=== PATIENT | male | born 1955 | race Caucasian/White ===

== ENCOUNTER 2021-05-01 06:13 | Day surgery (SDC) | payer BC ==
[2021-04-27 10:19] VITALS: BMI 23.6
[~2021-05-01 06:13] MED LIST: LACTATED RINGERS 1,000 ML IV SCH; LIDOCAINE 1% (10MG/ML) FOR IV START INTRADERMA PRN
[2021-05-01 07:01] VITALS: TEMP 98
[2021-05-01] MEDS ORDERED: PROPOFOL 10 MG/ML 20 ML VIAL IV ONE (07:04)
--- NOTE | 2021-05-01 07:10 | P.GSHP ---
History of Present Illness H&P Date: 05/01/21 CHIEF COMPLAINT: Colon screen HISTORY OF PRESENT ILLNESS: The patient is a 65-year-old male who presents for colon screen. Lower endoscopy was offered for further evaluation and management. PAST MEDICAL HISTORY: Please see list. PAST SURGICAL HISTORY: Please see list. MEDICATIONS: Please see list. ALLERGIES: Please see list. SOCIAL HISTORY: No illicit drug use FAMILY HISTORY: No reports of Crohn disease or ulcerative colitis. REVIEW OF ORGAN SYSTEMS: CONSTITUTIONAL: No reports of fevers or chills. PHYSICAL EXAM: VITAL SIGNS: Stable GENERAL: Well-developed pleasant in no acute distress. HEENT: No scleral icterus. Extraocular movements grossly intact. Moist buccal mucosa. NECK: Supple without lymphadenopathy. CHEST: Unlabored respirations. Equal bilateral excursions. CARDIOVASCULAR: Regular rate and rhythm. Distal 2+ pulses. ABDOMEN: Soft, nontender, nondistended. MUSCULOSKELETAL: No clubbing, cyanosis, or edema. ASSESSMENT: 1. Colon screen. PLAN: 1. Recommend proceeding with a lower endoscopy Past Medical History Past Medical History: Thyroid Disorder Additional Past Medical History / Comment(s): "pre cancer polyps in colon" History of Any Multi-Drug Resistant Organisms: None Reported Past Surgical History: Appendectomy, Hernia Repair Additional Past Surgical History / Comment(s): colonoscopy Past Anesthesia/Blood Transfusion Reactions: No Reported Reaction Past Psychological History: No Psychological Hx Reported Smoking Status: Never smoker Past Alcohol Use History: None Reported Past Drug Use History: None Reported - Past Family History Father Family Medical History: Cancer Additional Family Medical History / Comment(s): colon Mother Family Medical History: Cancer Medications and Allergies Home Medications Medication Instructions Recorded Confirmed Type Naproxen Sodium [Aleve] 220 mg PO Q12HR PRN 03/29/16 04/27/21 History Synthroid(Dose Unknown) 1 tab PO QAM 04/27/21 04/27/21 History Allergies Allergy/AdvReac Type Severity Reaction Status Date / Time gluten Allergy Unknown Verified 04/27/21 10:13 meperidine HCl [From Demerol] Allergy Rash/Hives Verified 04/27/21 10:13 Surgical - Exam Vital Signs Temp Pulse Resp BP Pulse Ox 98 F 88 20 152/78 97 05/01/21 06:45 05/01/21 06:45 05/01/21 06:45 05/01/21 06:45 05/01/21 06:45
[2021-05-01 07:29] VITALS: RESP 16
--- NOTE | 2021-05-01 07:31 | P.PCN ---
Date of Procedure: 05/01/21 Description of Procedure: PREOPERATIVE DIAGNOSIS: Colonoscopy screening. Personal history colon polyps POSTOPERATIVE DIAGNOSIS: Moderate to severe sigmoid diverticulosis with stricture OPERATION: Colonoscopy to the cecum, ileocecal valve and appendiceal orifice. SURGEON: Danuta Mane MD. ANESTHESIA: MAC. INDICATIONS: The patient is a 65-year-old male who presents for colonoscopy screening. Last colonoscopy over 5 years ago. Benefits and risks were described and informed consent was obtained. DESCRIPTION OF PROCEDURE: The patient had undergone Sutab prep. The patient had been brought into the operating room and laid in the left lateral decubitus position. After adequate intravenous sedation, the rectum was examined with 2% lidocaine jelly. No external hemorrhoids were encountered. The rectal tone was within normal limits. No lesions were palpated in the rectal vault. An Olympus colonoscope was advanced until the cecum, ileocecal valve and appendiceal orifice were clearly viewed. The prep was fair with limited view of the cecum due to retained stool. Moderate to severe sigmoid diverticulosis was encountered with stricture at 30 cm from the anal verge. Redundancy was identified along the sigmoid colon. No large colonic polyps were found. No evidence of focal colitis was found. Retroflexion of the scope demonstrated grade 1 internal hemorrhoids without active bleeding or inflammation. The colon was desufflated. The patient had tolerated the procedure well. Withdrawal time was over 6 minutes. FINDINGS: Aronchick preparation quality scale 3 (1-5) Internal hemorrhoids, grade 1 No external prolapsed hemorrhoids. No arteriovenous malformations. No large adenomatous polyps. No focal colitis. Moderate to severe sigmoid diverticulosis was encountered with stricture at 30 cm from the anal verge. RECOMMENDATIONS: Lower endoscopy in 5 years, 2025 Plan - Discharge Summary New Discharge Prescriptions: Continue Naproxen Sodium [Aleve] 220 mg PO Q12HR PRN PRN Reason: Pain Synthroid(Dose Unknown) 1 tab PO QAM Discharge Medication List Naproxen Sodium [Aleve] 220 mg PO Q12HR PRN 03/29/16 [History] Synthroid(Dose Unknown) 1 tab PO QAM 04/27/21 [History] Follow up Appointment(s)/Referral(s): Danuta Mane MD [STAFF PHYSICIAN] - 05/04/21 Patient Instructions/Handouts: Diverticulosis Diet (GEN), Diverticulosis (DC) Activity/Diet/Wound Care/Special Instructions: Repeat colonoscopy in 5 years, 2025 Discharge Disposition: HOME SELF-CARE
[2021-05-01 07:42] VITALS: BP 113/61; PULSE 69
== END 2021-05-01 08:06 | disposition home or self-care (01) ==
LOC: ORWHC2ENDO 06:13
PROVIDERS: ATTEND Surgery Plastic and Reconstructive Surgery
DX: Z12.11 Encounter for screening for malignant neoplasm of colon (principal); K57.30 Diverticulosis of large intestine without perforation or abscess without bleeding; K64.0 First degree hemorrhoids; K56.699 Other intestinal obstruction unspecified as to partial versus complete obstruction; Z86.010 Personal history of colon polyps; E07.9 Disorder of thyroid, unspecified; Z90.89 Acquired absence of other organs; Z98.890 Other specified postprocedural states; Z80.0 Family history of malignant neoplasm of digestive organs; Z79.890 Hormone replacement therapy; Z88.5 Allergy status to narcotic agent; Z91.018 Allergy to other foods
CPT/HCPCS: J2704; G0105; 45378

== ENCOUNTER → 2023-10-01 | Outpatient (CLI) | payer OTHER ==
--- NOTE | 2023-10-02 09:23 | CT ---
EXAMINATION TYPE: CT facial bones wo con DATE OF EXAM: 10/01/2023 COMPARISON: None HISTORY: visual changes CT DLP: 569.5 mGycm Automated exposure control for dose reduction was used. TECHNIQUE: CT scan of the sinuses is performed without contrast, axial images are obtained, coronal r eformatted images are also reviewed. Assessment of the orbits is limited due to artifact. FINDINGS: A nasal septal deviation seen with moderate ethmoidal and mild maxillary chronic-appearing sinusitis. Mild frontal and sphenoidal chronic sinusitis. No air-fluid levels or evidence of acute si nusitis. Occlusion of the left ostiomeatal complex and narrowing on the right. There is multilevel degenerative change of the visualized cervical spine with facet arthropathy. Opti c nerves and intraocular muscles are symmetric. Mild generalized intracranial degenerative changes. IMPRESSION: 1. The orbits are grossly symmetric by noncontrast technique. If there is concern for a orbital abnor mality would recommend postcontrast MRI orbits. 2. [id number] chronic sinusitis.
== END | disposition home or self-care (01) ==
LOC: RADCTMAIN 15:30
PROVIDERS: ATTEND Ophthalmology
DX: J32.9 Chronic sinusitis, unspecified (principal); H05.20 Unspecified exophthalmos; E06.3 Autoimmune thyroiditis
CPT/HCPCS: 70486